=== PATIENT | male | born 1985 | race Two or more races ===

== ENCOUNTER 2017-05-08 20:16 | Emergency (ER) | payer MEDICAID ==
[~2017-05-08] VITALS: Ht 180.3 cm; Wt 84.4 kg
[2017-05-08 21:27] LABS: Basophils # (auto) 0.1 uL; Basophils % (auto) 2.4 % (0.0-2.0); CONDITION Y; Eosinophils # (auto) 0.1 uL; Eosinophils % (auto) 3.2 % (0.0-7.0); Hematocrit 39.9 % (41.0-53.0); Hemoglobin 13.8 g/dL (13.5-17.5); Lymphocytes # (auto) 1.4 uL; Lymphocytes % (auto) 36.8 % (10.0-50.0); Mean Corpuscular Hemoglobin 33.1 pg (28.0-32.0); Mean Corpuscular Hgb Conc. 34.5 g/dL (32.0-36.0); Mean Corpuscular Volume 95.9 fL (80.0-100.0); Mean Platelet Volume 6.8 fL (7.4-10.4); Monocytes # (auto) 0.5 uL; Monocytes % (auto) 12.9 % (0.0-12.0); Neutrophils # (auto) 1.7 uL; Neutrophils % (auto) 44.7 % (37.0-80.0); Platelet Count (auto) 207 10^3/uL (140-450); Red Cell Distribution Width 15.1 % (11.6-16.0); White Blood Cell 3.7 10^3/uL (4.4-10.8)
[2017-05-08 21:37] LABS: Albumin 4.7 g/dL (3.4-5.0); BUN/Creatinine Ratio 6.5; Calcium 8.6 mg/dL (8.5-10.1); Potassium 3.6 mmol/L (3.5-5.1)
[2017-05-08 21:39] LABS: Bilirubin, Total 1.9 mg/dL (0.2-1.0); Total Protein 8.7 g/dL (6.4-8.2)
[2017-05-08 22:04] LABS: Platelet Estimate Adequate
[2017-05-08 22:06] LABS: Tear Drop Cells FEW
[2017-05-08 22:08] LABS: Burr Cells FEW
[2017-05-08 22:10] LABS: Stomatocytes Few
[2017-05-09 02:08] LABS: INR 1.1 (0.9-1.15)
[2017-05-09 02:17] VITALS: BP 111/75
== END 2017-05-09 02:41 | disposition home or self-care (01) ==
LOC: ER 20:21
DX: S40.012A Contusion of left shoulder, initial encounter (principal); F10.10 Alcohol abuse, uncomplicated; F17.210 Nicotine dependence, cigarettes, uncomplicated; X58.XXXA Exposure to other specified factors, initial encounter; Y93.89 Activity, other specified; Y92.89 Other specified places as the place of occurrence of the external cause; Y99.8 Other external cause status
CPT/HCPCS: 36415; 73030; 80053; 85025; 85610

== ENCOUNTER 2018-08-17 05:51 | Emergency (ER) | payer SELFPAY ==
[~2018-08-17] VITALS: Ht 182.9 cm; Wt 76.2 kg
[2018-08-17 06:58] LABS: Urine WBC None Seen /hpf (0 - 3)
[2018-08-17 07:00] VITALS: BP 138/96
[2018-08-17 07:03] LABS: Lymphocytes # (auto) 1.8 uL; Mean Corpuscular Hemoglobin 34.5 pg (28.0-32.0); Mean Corpuscular Hgb Conc. 34.4 g/dL (32.0-36.0); Mean Corpuscular Volume 100.4 fL (80.0-100.0); Monocytes # (auto) 0.6 uL; Platelet Count (auto) 210 10^3/uL (140-450); White Blood Cell 6.1 10^3/uL (4.4-10.8)
[2018-08-17 07:05] LABS: Urine Amorphous Crystal FEW /hpf (None Seen); Urine Bacteria NONE SEEN /hpf (None Seen); Urine Blood TRACE /uL (Negative); Urine Specific Gravity 1.002 (1.001-1.035)
[2018-08-17 07:06] LABS: Basophils # (auto) 0 uL; Basophils % (auto) 0.7 % (0.0-2.0); Eosinophils # (auto) 0.3 uL; Eosinophils % (auto) 5.4 % (0.0-7.0); Hematocrit 42.5 % (41.0-53.0); Hemoglobin 14.6 g/dL (13.5-17.5); Lymphocytes % (auto) 29.7 % (10.0-50.0); Monocytes % (auto) 10.3 % (0.0-12.0); Neutrophils # (auto) 3.3 uL; Neutrophils % (auto) 53.9 % (37.0-80.0); Nucleated Red Blood Cells % 0.2 %; Red Blood Cells 4.23 10^6/uL (4.5-5.90)
[2018-08-17 07:25] LABS: Alanine Aminotransferase 34 U/L (16-61); Albumin 2.4 g/dL (3.4-5.0); Anion Gap 11 (5-15); Aspartate Aminotransferase 69 U/L (15-37); BUN/Creatinine Ratio 7.6; Blood Urea Nitrogen 5 mg/dL (7-18); Calcium 7.6 mg/dL (8.5-10.1); Carbon Dioxide 24 mmol/L (21-32); Chloride 104 mmol/L (98-107); GFR African American 178 mL/min; GFR Non-African American 147 mL/min; Glucose 75 mg/dL (74-106); INR 0.97 (0.9-1.15); Magnesium 2.5 mg/dL (1.6-2.6); Partial Thromboplastin Time 30.8 sec (23.78-33.04); Potassium 3.8 mmol/L (3.5-5.1); Prothrombin Time 10.4 sec (9.27-12.13); Sodium 139 mmol/L (136-145)
[2018-08-17 07:33] LABS: Amphetamine Screen, Urine NEGATIVE (NEGATIVE); Barbiturate Scree,Urine NEGATIVE (NEGATIVE); Benzodiazephine Screen, Urine NEGATIVE (NEGATIVE); Cannabinoid Screen, Urine POSITIVE (NEGATIVE); Cocaine Screen, Urine NEGATIVE (NEGATIVE); Opiate Scree,Urine NEGATIVE (NEGATIVE); Phencyclidine Screen, Urine NEGATIVE (NEGATIVE)
[2018-08-17 07:44] LABS: Alkaline Phosphatase 95 U/L (45-117); Bilirubin, Total 0.6 mg/dL (0.2-1.0); Total Protein 6.9 g/dL (6.4-8.2)
== END 2018-08-17 08:35 | disposition home or self-care (01) ==
LOC: ER 05:52
DX: L03.116 Cellulitis of left lower limb (principal); L03.115 Cellulitis of right lower limb; F17.210 Nicotine dependence, cigarettes, uncomplicated; F12.10 Cannabis abuse, uncomplicated
CPT/HCPCS: 36415; 80053; 80307; 81001; 83735; 83880; 84443; 84484; 85025; 85379; 85610; 85730

== ENCOUNTER 2018-09-09 | Inpatient (IN) | payer MEDICAID ==
[~2018-09-09] VITALS: Ht 182.9 cm; Wt 89.0 kg
[2018-09-09 01:04] LABS: Basophils # (auto) 0 uL; Basophils % (auto) 0.3 % (0.0-2.0); Eosinophils # (auto) 0.5 uL; Eosinophils % (auto) 7.9 % (0.0-7.0); Hematocrit 39.9 % (41.0-53.0); Hemoglobin 13.9 g/dL (13.5-17.5); Lymphocytes # (auto) 2.2 uL; Lymphocytes % (auto) 33.5 % (10.0-50.0); Mean Corpuscular Hemoglobin 33.9 pg (28.0-32.0); Mean Corpuscular Hgb Conc. 34.9 g/dL (32.0-36.0); Mean Corpuscular Volume 97.3 fL (80.0-100.0); Monocytes # (auto) 0.7 uL; Monocytes % (auto) 10.3 % (0.0-12.0); Neutrophils # (auto) 3.2 uL; Nucleated Red Blood Cells % 0.1 %; Platelet Count (auto) 302 10^3/uL (140-450); Red Cell Distribution Width 12.7 % (11.8-14.3); White Blood Cell 6.6 10^3/uL (4.4-10.8)
[2018-09-09] MEDS ORDERED: CLINDAMYCIN 900MG IV 50 ML IV ONE (01:15)
[2018-09-09 01:20] LABS: Alanine Aminotransferase 40 U/L (16-61); Albumin 1.8 g/dL (3.4-5.0); Anion Gap 11 (5-15); Aspartate Aminotransferase 65 U/L (15-37); BUN/Creatinine Ratio 14.9; Blood Urea Nitrogen 10 mg/dL (7-18); Carbon Dioxide 21 mmol/L (21-32); Chloride 105 mmol/L (98-107); GFR African American 175 mL/min; GFR Non-African American 144 mL/min; Glucose 89 mg/dL (74-106); Magnesium 2.6 mg/dL (1.6-2.6); Potassium 3.9 mmol/L (3.5-5.1); Sodium 137 mmol/L (136-145)
[2018-09-09 01:24] LABS: Alkaline Phosphatase 121 U/L (45-117); Bilirubin, Total 0.4 mg/dL (0.2-1.0); Total Protein 5.9 g/dL (6.4-8.2)
[2018-09-09 01:31] LABS: INR 0.92 (0.9-1.15); Partial Thromboplastin Time 31.4 sec (23.78-33.04); Prothrombin Time 9.9 sec (9.27-12.13)
[2018-09-09 02:11] LABS: Urine Specific Gravity 1.003 (1.001-1.035)
[2018-09-09 02:12] LABS: Urine Blood Trace /uL (Negative)
[2018-09-09 02:13] LABS: Urine Bacteria FEW /hpf (None Seen); Urine Hyaline Cast 2+ /lpf (0 - 2); Urine WBC <1 /hpf (0 - 3)
[2018-09-09 02:14] LABS: Urine Mucus FEW (None Seen)
[2018-09-09] MEDS ORDERED: ACETAMINOPHEN 325 MG TAB PO PRN (05:00)
[2018-09-09] MEDS ORDERED: ONDANSETRON HCL 4 MG/2 ML VIAL IV PRN (05:00)
[2018-09-09] MEDS ORDERED: ALBUMIN 25% 100 ML IV ONE (06:00)
[2018-09-09] MEDS ORDERED: FUROSEMIDE 20 MG/2 ML VIAL IV ONE ×2 (06:00→14:00)
[2018-09-09] MEDS ORDERED: cloNIDine HCL 0.1 MG TAB PO PRN (07:00)
[2018-09-09] MEDS ORDERED: CLINDAMYCIN 600MG IV 50 ML IV SCH (07:00)
[2018-09-09] MEDS: FOLIC ACID 1 MG TAB PO SCH (10:46)
[2018-09-09] MEDS: CLINDAMYCIN 600MG IV 50 ML IV SCH ×2 (10:46→17:31)
[2018-09-09] MEDS: THIAMINE HCL 100 MG TAB PO SCH (10:47)
[2018-09-09] MEDS: FAMOTIDINE 20 MG TAB PO SCH ×2 (10:47→21:51)
[2018-09-09] MEDS ORDERED: cefTRIAXone 1GM/50ML D5W 50 ML IV ONE (14:00)
[2018-09-09] MEDS ORDERED: POTASSIUM CHLORIDE 8 MEQ TAB PO ONE (14:00)
[2018-09-09 14:55] VITALS: BP 141/84
[2018-09-09 17:16] VITALS: BP 141/84
[2018-09-09] MEDS: Ensure Enlive Strawberry 8oz Bottle PO SCH (17:31)
[2018-09-09] MEDS: chlordiazePOXIDE HCL 5 MG CAP PO PRN ×2 (17:32→23:54)
[2018-09-09] MEDS: HYDROcodone-ACET 5/325MG TAB PO PRN (20:28)
[2018-09-09 22:00] VITALS: BP 141/99
[2018-09-10] MEDS: HYDROcodone-ACET 5/325MG TAB PO PRN ×4 (01:34→21:02)
[2018-09-10] MEDS: CLINDAMYCIN 600MG IV 50 ML IV SCH ×3 (02:09→18:24)
[2018-09-10 04:57] VITALS: BP 122/84
[2018-09-10 06:10] LABS: Basophils # (auto) 0.1 uL; Basophils % (auto) 2.5 % (0.0-2.0); Eosinophils # (auto) 0.3 uL; Eosinophils % (auto) 6.1 % (0.0-7.0); Hematocrit 41.4 % (41.0-53.0); Hemoglobin 14.2 g/dL (13.5-17.5); Lymphocytes # (auto) 1.9 uL; Lymphocytes % (auto) 34.3 % (10.0-50.0); Mean Corpuscular Hemoglobin 33.8 pg (28.0-32.0); Mean Corpuscular Hgb Conc. 34.2 g/dL (32.0-36.0); Mean Corpuscular Volume 98.8 fL (80.0-100.0); Monocytes # (auto) 0.6 uL; Monocytes % (auto) 11.6 % (0.0-12.0); Neutrophils # (auto) 2.5 uL; Neutrophils % (auto) 45.5 % (37.0-80.0); Nucleated Red Blood Cells % 0.1 %; Platelet Count (auto) 261 10^3/uL (140-450); Red Blood Cells 4.19 10^6/uL (4.5-5.90); Red Cell Distribution Width 12.7 % (11.8-14.3); White Blood Cell 5.5 10^3/uL (4.4-10.8)
[2018-09-10] MEDS: chlordiazePOXIDE HCL 5 MG CAP PO PRN ×3 (06:23→23:15)
[2018-09-10 06:28] LABS: Albumin 2.1 g/dL (3.4-5.0); Anion Gap 7 (5-15); Blood Urea Nitrogen 12 mg/dL (7-18); Calcium 8.2 mg/dL (8.5-10.1); Carbon Dioxide 30 mmol/L (21-32); Chloride 100 mmol/L (98-107); Glucose 104 mg/dL (74-106); Potassium 3.6 mmol/L (3.5-5.1); Sodium 137 mmol/L (136-145)
[2018-09-10 06:33] LABS: Alanine Aminotransferase 36 U/L (16-61); Alkaline Phosphatase 119 U/L (45-117); Aspartate Aminotransferase 47 U/L (15-37); BUN/Creatinine Ratio 13.3; Bilirubin, Total 1.1 mg/dL (0.2-1.0); GFR African American 124 mL/min; GFR Non-African American 103 mL/min; Total Protein 6.3 g/dL (6.4-8.2)
[2018-09-10] MEDS: Ensure Enlive Strawberry 8oz Bottle PO SCH ×3 (08:00→18:24)
[2018-09-10 08:22] VITALS: BP 130/86
[2018-09-10] MEDS: FOLIC ACID 1 MG TAB PO SCH (10:26)
[2018-09-10] MEDS: FUROSEMIDE 20 MG/2 ML VIAL IV SCH (10:26)
[2018-09-10] MEDS: FAMOTIDINE 20 MG TAB PO SCH ×2 (10:26→21:02)
[2018-09-10] MEDS: POTASSIUM CHLORIDE 8 MEQ TAB PO SCH (10:27)
[2018-09-10] MEDS: THIAMINE HCL 100 MG TAB PO SCH (10:27)
[2018-09-10] MEDS: cefTRIAXone 1GM/50ML D5W 50 ML IV SCH (10:28)
[2018-09-10 11:45] VITALS: BP 143/87
[2018-09-10 13:19] LABS: Protein, Urine 168.2 mg/dL (0.0-11.9)
[2018-09-10 13:40] LABS: Hepatitis A Ab IgM Negative; Hepatitis B Core IgM Negative; Hepatitis C Antibody Negative (Negative)
[2018-09-10 13:41] LABS: Hepatitis B Surface Antigen Negative (Negative)
[2018-09-10 16:22] VITALS: BP 134/86
[2018-09-11] MEDS: CLINDAMYCIN 600MG IV 50 ML IV SCH ×2 (01:57→09:25)
[2018-09-11 05:00] VITALS: BP 147/90
[2018-09-11 05:32] LABS: Basophils # (auto) 0.1 uL; Eosinophils # (auto) 0.4 uL; Monocytes # (auto) 0.4 uL; Nucleated Red Blood Cells % 0.1 %; Red Cell Distribution Width 12.7 % (11.8-14.3)
[2018-09-11 05:34] LABS: Basophils % (auto) 1.2 % (0.0-2.0); Eosinophils % (auto) 8.7 % (0.0-7.0); Hemoglobin 12.6 g/dL (13.5-17.5); Lymphocytes # (auto) 1.4 uL; Lymphocytes % (auto) 30.6 % (10.0-50.0); Mean Corpuscular Hemoglobin 33.7 pg (28.0-32.0); Mean Corpuscular Volume 99.1 fL (80.0-100.0); Monocytes % (auto) 8.3 % (0.0-12.0); Neutrophils # (auto) 2.4 uL; Neutrophils % (auto) 51.2 % (37.0-80.0); Platelet Count (auto) 236 10^3/uL (140-450); Red Blood Cells 3.73 10^6/uL (4.5-5.90); White Blood Cell 4.7 10^3/uL (4.4-10.8)
[2018-09-11 05:43] LABS: Albumin 1.9 g/dL (3.4-5.0); BUN/Creatinine Ratio 14.1; Calcium 7.8 mg/dL (8.5-10.1); Potassium 3.6 mmol/L (3.5-5.1)
[2018-09-11 05:44] LABS: Cholesterol 263 mg/dL (< 200); Triglycerides 110 mg/dL (< 150)
[2018-09-11 05:45] LABS: Bilirubin, Total 0.8 mg/dL (0.2-1.0); Total Protein 5.6 g/dL (6.4-8.2)
[2018-09-11 05:47] LABS: HDL Cholesterol 89 mg/dL (40-59); LDL Cholesterol 160 mg/dL (< 100)
[2018-09-11] MEDS: HYDROcodone-ACET 5/325MG TAB PO PRN ×2 (05:54→21:45)
[2018-09-11 06:06] LABS: RPR Non Reactive (Non Reactive)
[2018-09-11] MEDS: Ensure Enlive Strawberry 8oz Bottle PO SCH ×3 (08:00→18:00)
[2018-09-11 09:00] VITALS: BP 128/82
[2018-09-11] MEDS: cefTRIAXone 1GM/50ML D5W 50 ML IV SCH (09:25)
[2018-09-11] MEDS: FUROSEMIDE 20 MG/2 ML VIAL IV SCH (09:28)
[2018-09-11] MEDS: FAMOTIDINE 20 MG TAB PO SCH ×2 (09:29→21:45)
[2018-09-11] MEDS: THIAMINE HCL 100 MG TAB PO SCH (09:29)
[2018-09-11] MEDS: FOLIC ACID 1 MG TAB PO SCH (09:30)
[2018-09-11] MEDS: POTASSIUM CHLORIDE 8 MEQ TAB PO SCH (09:30)
[2018-09-11] MEDS ORDERED: ERGOCALCIFEROL 50,000 UNIT(1.25MG) CAP PO SCH (12:00)
[2018-09-11 13:00] VITALS: BP_SYST 118; BP_SYST 145; BP_DIAS 69; BP_DIAS 95
[2018-09-11] MEDS: LISINOPRIL 10 MG TAB PO SCH (14:22)
[2018-09-11 17:00] VITALS: BP 148/100
[2018-09-11] MEDS: ATORVASTATIN 20 MG TAB PO SCH (21:44)
[2018-09-11] MEDS: chlordiazePOXIDE HCL 5 MG CAP PO PRN (21:45)
[2018-09-11 22:00] VITALS: BP 158/94
[2018-09-11] MEDS: TEMAZEPAM 15 MG CAP PO PRN (23:48)
[2018-09-12 05:09] VITALS: BP 131/71
[2018-09-12 05:40] LABS: Basophils # (auto) 0.1 uL; Basophils % (auto) 1.8 % (0.0-2.0); Eosinophils # (auto) 0.6 uL; Eosinophils % (auto) 10.9 % (0.0-7.0); Hematocrit 36.1 % (41.0-53.0); Hemoglobin 12.3 g/dL (13.5-17.5); Lymphocytes # (auto) 1.7 uL; Lymphocytes % (auto) 33.2 % (10.0-50.0); Mean Corpuscular Hemoglobin 33.9 pg (28.0-32.0); Mean Corpuscular Hgb Conc. 34.2 g/dL (32.0-36.0); Mean Corpuscular Volume 99.3 fL (80.0-100.0); Monocytes # (auto) 0.5 uL; Monocytes % (auto) 10.7 % (0.0-12.0); Neutrophils # (auto) 2.2 uL; Neutrophils % (auto) 43.4 % (37.0-80.0); Nucleated Red Blood Cells % 0.1 %; Platelet Count (auto) 226 10^3/uL (140-450); Red Blood Cells 3.63 10^6/uL (4.5-5.90); Red Cell Distribution Width 12.7 % (11.8-14.3); White Blood Cell 5.1 10^3/uL (4.4-10.8)
[2018-09-12 05:53] LABS: Calcium 7.9 mg/dL (8.5-10.1); Potassium 3.8 mmol/L (3.5-5.1)
[2018-09-12 05:56] LABS: Albumin 1.6 g/dL (3.4-5.0); BUN/Creatinine Ratio 19.4
[2018-09-12 06:13] LABS: Bilirubin, Total 0.3 mg/dL (0.2-1.0); Total Protein 5.1 g/dL (6.4-8.2)
[2018-09-12] MEDS: Ensure Enlive Strawberry 8oz Bottle PO SCH ×3 (08:00→19:24)
[2018-09-12 09:00] VITALS: BP 133/93
[2018-09-12] MEDS: FUROSEMIDE 20 MG/2 ML VIAL IV SCH (10:14)
[2018-09-12] MEDS: FAMOTIDINE 20 MG TAB PO SCH ×2 (10:15→22:09)
[2018-09-12] MEDS: POTASSIUM CHLORIDE 8 MEQ TAB PO SCH (10:15)
[2018-09-12] MEDS: FOLIC ACID 1 MG TAB PO SCH (10:15)
[2018-09-12] MEDS: LISINOPRIL 10 MG TAB PO SCH (10:16)
[2018-09-12] MEDS: THIAMINE HCL 100 MG TAB PO SCH (10:17)
[2018-09-12] MEDS: HYDROcodone-ACET 5/325MG TAB PO PRN ×2 (10:18→22:09)
[2018-09-12] MEDS ORDERED: LIDOCAINE 2% (LOCAL ANESTH.) PF 5ml SDV ONE (11:22)
[2018-09-12] MEDS ORDERED: GELATIN 1 SPONGE SIZE 100 TOP ONE (11:22)
[2018-09-12] MEDS ORDERED: MIDAZOLAM HCL 1MG/1ML-2 ML VIAL ONE (11:30)
[2018-09-12 12:52] VITALS: BP 134/95
[2018-09-12 17:00] VITALS: BP 141/86
[2018-09-12 22:00] VITALS: BP 159/99
[2018-09-12] MEDS: ATORVASTATIN 20 MG TAB PO SCH (22:09)
[2018-09-12] MEDS: TEMAZEPAM 15 MG CAP PO PRN (23:09)
[2018-09-13 05:00] VITALS: BP 131/79
[2018-09-13 05:52] LABS: Basophils # (auto) 0.1 uL; Basophils % (auto) 2.3 % (0.0-2.0); Eosinophils # (auto) 0.5 uL; Hemoglobin 12.4 g/dL (13.5-17.5); Lymphocytes # (auto) 1.7 uL; Lymphocytes % (auto) 31.4 % (10.0-50.0); Mean Corpuscular Hemoglobin 33.8 pg (28.0-32.0); Mean Corpuscular Hgb Conc. 34.3 g/dL (32.0-36.0); Mean Corpuscular Volume 98.7 fL (80.0-100.0); Monocytes # (auto) 0.5 uL; Monocytes % (auto) 9.4 % (0.0-12.0); Neutrophils # (auto) 2.5 uL; Neutrophils % (auto) 47.9 % (37.0-80.0); Nucleated Red Blood Cells % 0.1 %; Platelet Count (auto) 239 10^3/uL (140-450); Red Blood Cells 3.65 10^6/uL (4.5-5.90); Red Cell Distribution Width 12.4 % (11.8-14.3); White Blood Cell 5.3 10^3/uL (4.4-10.8)
[2018-09-13] MEDS: Ensure Enlive Strawberry 8oz Bottle PO SCH ×2 (08:00→12:00)
[2018-09-13 09:13] VITALS: BP 134/89
[2018-09-13] MEDS ORDERED: LISI10TA6 PO (09:44)
[2018-09-13] MEDS ORDERED: FUR20T PO (09:44)
[2018-09-13] MEDS ORDERED: POTA1TAB61 PO (09:44)
[2018-09-13] MEDS ORDERED: ATOR20TA50 PO (09:44)
[2018-09-13] MEDS ORDERED: FUROSEMIDE 20 MG TAB PO SCH (10:00)
[2018-09-13] MEDS: POTASSIUM CHLORIDE 8 MEQ TAB PO SCH (10:25)
[2018-09-13] MEDS: FOLIC ACID 1 MG TAB PO SCH (10:25)
[2018-09-13] MEDS: LISINOPRIL 10 MG TAB PO SCH (10:26)
[2018-09-13] MEDS: THIAMINE HCL 100 MG TAB PO SCH (10:27)
[2018-09-13] MEDS: FAMOTIDINE 20 MG TAB PO SCH (10:27)
[2018-09-13 13:06] VITALS: BP 145/103
== END 2018-09-13 13:40 | disposition home or self-care (01) | DRG 462 ==
LOC: ER → OVERFLOW 00:01 → WEST WING 14:54
PROVIDERS: ADMIT Nurse Practitioner; ATTEND Internal Medicine
PROC: 0TB13ZX Excision of Left Kidney, Percutaneous Approach, Diagnostic (ICD-10-PCS; principal; 2018-09-12)
DX: N04.9 Nephrotic syndrome with unspecified morphologic changes (principal); I50.43 Acute on chronic combined systolic (congestive) and diastolic (congestive) heart failure; E44.0 Moderate protein-calorie malnutrition; L03.115 Cellulitis of right lower limb; I11.0 Hypertensive heart disease with heart failure; J43.9 Emphysema, unspecified; L03.116 Cellulitis of left lower limb; N39.0 Urinary tract infection, site not specified; M79.89 Other specified soft tissue disorders; R07.89 Other chest pain; E55.9 Vitamin D deficiency, unspecified; F10.10 Alcohol abuse, uncomplicated; E78.00 Pure hypercholesterolemia, unspecified; E78.5 Hyperlipidemia, unspecified; F12.10 Cannabis abuse, uncomplicated; N19 Unspecified kidney failure; F17.210 Nicotine dependence, cigarettes, uncomplicated; N05.9 Unspecified nephritic syndrome with unspecified morphologic changes; Z79.899 Other long term (current) drug therapy; Z71.41 Alcohol abuse counseling and surveillance of alcoholic; Z71.6 Tobacco abuse counseling
CPT/HCPCS: 10022; 36415; 71045; 74150; 77012; 80053; 80061; 80074; 81001; 82306; 82570; 83516; 83735; 83880; 84156; 84300; 84443; 84484; 85025; 85610; 85730; 86141; 86160; 86225; 86235; 86592; 86850; 86900; 86901; 87040; 87086; 93005; 93306; 93970; 96365; 96367; 96375; A6257; G0378; J0696; J2001; J2250; J3490; P9047